=== PATIENT | male | born 1960 | race Caucasian/White ===

== ENCOUNTER 2017-01-20 08:10 | Emergency (ER) | payer OTHER ==
[~2017-01-20] VITALS: Ht 180.3 cm; Wt 127.3 kg
[2017-01-20] MEDS ORDERED: ZOCOR20 MG PO (08:44)
[2017-01-20] MEDS ORDERED: LAMICTAL100 MG PO (08:44)
[2017-01-20] MEDS ORDERED: CLEOCIN300 MG PO (08:44)
[2017-01-20] MEDS ORDERED: HYTRIN5 MG PO (08:45)
[2017-01-20] MEDS ORDERED: DEPAKOTE250 MG PO (08:45)
[2017-01-20] MEDS ORDERED: INDERAL40 MG PO (08:46)
[2017-01-20] MEDS ORDERED: DILANTIN100 MG PO (08:47)
[2017-01-20 09:11] LABS: HEMATOCRIT 33.7 % (38.0-50.0); MCH 28.5 PG (29.0-34.0); MCHC 33.2 G/DL (30.0-36.0); MCV 85.8 FL (86-99); PLATELET COUNT 245 K/uL (156-360); RBC DIS.WIDTH-CV 12.8 % (11.8-14.6); RBC DIS.WIDTH-SD 39.8 % (39-53); RED BLOOD COUNT 3.93 M/uL (4.00-5.50); WHITE BLOOD COUNT 7.3 K/uL (4.1-10.2)
[2017-01-20 09:22] LABS: CHLORIDE 103 mEq/L (99-109); POTASSIUM 4.3 mEq/L (3.7-5.4); SODIUM 137 mEq/L (136-147)
[2017-01-20 09:24] LABS: GLUCOSE 96 mg/dL (70-99)
[2017-01-20 09:25] LABS: ANION GAP 8 MEQ/L (2-14)
[2017-01-20 09:26] LABS: TOTAL BILIRUBIN 0.3 mg/dL (0.0-1.0)
[2017-01-20 09:27] LABS: ALKALINE PHOSPHATASE 59 IU/L (3-129)
[2017-01-20 09:28] LABS: GFR ESTIMATE (CALCULATED) > 59 mL/min/
[2017-01-20 09:29] LABS: UREA NITROGEN (BUN) 15 mg/dL (9-23)
[2017-01-20 10:03] LABS: SAMPLE HEMOLYSIS CHECK 0; SAMPLE ICTERIC CHECK 0; SAMPLE LIPEMIA CHECK 0
[2017-01-20 11:17] LABS: ADD MIUA? NO; BILIRUBIN NEGATIVE; BLOOD NEGATIVE; COLOR YELLOW ((YELLOW)); GLUCOSE (STRIP) NEGATIVE; KETONES 20; LEUKOCYTES NEGATIVE; NITRITE NEGATIVE; PROTEIN (STRIP) 30; SPECIFIC GRAVITY 1.019 (1.000-1.030); UCUL ADDED? NO; UROBILINOGEN 0.2 MG/DL (0.2-1.0)
[2017-01-20 12:13] VITALS: BP 106/64
== END 2017-01-20 12:40 ==
LOC: EME → EDBD 08:10 → EME 12:40
PROVIDERS: Emergency Medicine
DX: G40.909 Epilepsy, unspecified, not intractable, without status epilepticus (principal); I87.2 Venous insufficiency (chronic) (peripheral); L89.899 Pressure ulcer of other site, unspecified stage; I10 Essential (primary) hypertension; E78.5 Hyperlipidemia, unspecified
CPT/HCPCS: 80053; 80164; 80185; 81003; 85027; 99281; 99285; J1165; J7030; J7050

== ENCOUNTER 2017-01-23 10:48 | Emergency (ER) | payer OTHER ==
[~2017-01-23] VITALS: Ht 180.3 cm; Wt 129.0 kg
[~2017-01-23 10:48] MED LIST: CLEOCIN300 MG PO; DEPAKOTE250 MG PO; DILANTIN100 MG PO; HYTRIN5 MG PO; INDERAL40 MG PO; LAMICTAL100 MG PO; ZOCOR20 MG PO
[2017-01-23] MEDS ORDERED: DOXYCYCLINE HY100 MG PO (12:40)
[2017-01-23 13:05] LABS: HEMATOCRIT 33.5 % (38.0-50.0); MCH 28.2 PG (29.0-34.0); MCHC 32.2 G/DL (30.0-36.0); MCV 87.5 FL (86-99); MEAN PLAT.VOLUME 9.3 uM^3 (9.0-12.4); PLATELET COUNT 227 K/uL (156-360); RBC DIS.WIDTH-CV 13.2 % (11.8-14.6); RBC DIS.WIDTH-SD 42.3 % (39-53); RED BLOOD COUNT 3.83 M/uL (4.00-5.50); WHITE BLOOD COUNT 6.2 K/uL (4.1-10.2)
[2017-01-23 13:23] LABS: CHLORIDE 104 mEq/L (99-109); POTASSIUM 4.2 mEq/L (3.7-5.4); SODIUM 137 mEq/L (136-147)
[2017-01-23 13:25] LABS: GLUCOSE 83 mg/dL (70-99)
[2017-01-23 13:26] LABS: ANION GAP 9 MEQ/L (2-14)
[2017-01-23 13:27] LABS: TOTAL BILIRUBIN 0.3 mg/dL (0.0-1.0)
[2017-01-23 13:28] LABS: ALKALINE PHOSPHATASE 55 IU/L (3-129)
[2017-01-23 13:29] LABS: GFR ESTIMATE (CALCULATED) > 59 mL/min/
[2017-01-23 13:30] LABS: UREA NITROGEN (BUN) 14 mg/dL (9-23)
[2017-01-23 13:48] VITALS: BP 114/79
== END 2017-01-23 13:52 ==
LOC: EME 10:48
PROVIDERS: Emergency Medicine
DX: I83.029 Varicose veins of left lower extremity with ulcer of unspecified site (principal); G40.909 Epilepsy, unspecified, not intractable, without status epilepticus; R60.0 Localized edema; I73.9 Peripheral vascular disease, unspecified; K21.9 Gastro-esophageal reflux disease without esophagitis
CPT/HCPCS: 80053; 85027; 99281; 99284

== ENCOUNTER 2017-02-02 16:06 | Emergency (ER) | payer OTHER ==
[~2017-02-02] VITALS: Ht 180.3 cm; Wt 125.7 kg
[~2017-02-02 16:06] MED LIST changes: +DOXYCYCLINE HY100 MG PO
[2017-02-02 17:59] LABS: BASOPHIL COUNT 0.1 K/uL (0-0.1); EOSINOPHIL (%) 1.7 % (0-5); EOSINOPHIL COUNT 0.1 K/uL (0-0.3); HEMATOCRIT 36.7 % (38.0-50.0); IMMATURE GRANULOCYTE (%) 3.8 % (0.0-0.7); IMMATURE GRANULOCYTE COUNT 0.2 K/uL; LYMPHOCYTE COUNT 1.5 K/uL (1.0-2.8); MCHC 32.7 G/DL (30.0-36.0); MCV 85.7 FL (86-99); MEAN PLAT.VOLUME 8.8 uM^3 (9.0-12.4); MONOCYTE (%) 18.5 % (3-12); MONOCYTE COUNT 1.1 K/uL (0-0.8); NEUTROPHIL (%) 49.3 % (45-76); PLATELET COUNT 226 K/uL (156-360); RBC DIS.WIDTH-CV 13.6 % (11.8-14.6); RBC DIS.WIDTH-SD 42.3 % (39-53); RED BLOOD COUNT 4.28 M/uL (4.00-5.50)
[2017-02-02 18:10] LABS: CHLORIDE 110 mEq/L (99-109); POTASSIUM 3.7 mEq/L (3.7-5.4); SODIUM 141 mEq/L (136-147)
[2017-02-02 18:12] LABS: GLUCOSE 93 mg/dL (70-99)
[2017-02-02 18:13] LABS: ANION GAP 10 MEQ/L (2-14)
[2017-02-02 18:14] LABS: TOTAL BILIRUBIN 0.3 mg/dL (0.0-1.0)
[2017-02-02 18:16] LABS: ALKALINE PHOSPHATASE 62 IU/L (3-129); GFR ESTIMATE (CALCULATED) > 59 mL/min/
[2017-02-02 18:17] LABS: UREA NITROGEN (BUN) 24 mg/dL (9-23)
[2017-02-03 01:13] VITALS: BP 119/69
== END 2017-02-03 01:16 | disposition short-term general hospital (02) ==
LOC: EME 16:06
PROVIDERS: Emergency Medicine
DX: L03.116 Cellulitis of left lower limb (principal); L03.115 Cellulitis of right lower limb; I96 Gangrene, not elsewhere classified; K21.9 Gastro-esophageal reflux disease without esophagitis; I73.9 Peripheral vascular disease, unspecified; I10 Essential (primary) hypertension; E78.5 Hyperlipidemia, unspecified
CPT/HCPCS: 73590; 73701; 80053; 83605; 85025; 87040; 87070; 87075; 87077; 87186; 87205; 99281; 99285; J2270; J2543; J3010; J3370; J7030

== ENCOUNTER 2017-02-14 21:20 | Emergency (ER) | payer OTHER ==
[~2017-02-14] VITALS: Ht 180.3 cm; Wt 125.0 kg
[2017-02-14 22:50] LABS: EOSINOPHIL (%) 0.7 % (0-5); EOSINOPHIL COUNT 0.1 K/uL (0-0.3); HEMATOCRIT 29.9 % (38.0-50.0); IMMATURE GRANULOCYTE (%) 0.9 % (0.0-0.7); IMMATURE GRANULOCYTE COUNT 0.1 K/uL; INSTRUMENT ABS NEUTROPHIL CT 7.3 K/uL; LYMPHOCYTE COUNT 0.6 K/uL (1.0-2.8); MCH 28.3 PG (29.0-34.0); MCHC 32.8 G/DL (30.0-36.0); MCV 86.4 FL (86-99); MEAN PLAT.VOLUME 9.2 uM^3 (9.0-12.4); MONOCYTE (%) 7.4 % (3-12); MONOCYTE COUNT 0.6 K/uL (0-0.8); NEUTROPHIL (%) 83.9 % (45-76); NEUTROPHIL COUNT 7.3 K/uL (1.8-6.4); PLATELET COUNT 268 K/uL (156-360); RBC DIS.WIDTH-CV 15.1 % (11.8-14.6); RED BLOOD COUNT 3.46 M/uL (4.00-5.50); WHITE BLOOD COUNT 8.7 K/uL (4.1-10.2)
[2017-02-14 22:55] LABS: CHLORIDE 105 mEq/L (99-109); POTASSIUM 3.9 mEq/L (3.7-5.4); SODIUM 136 mEq/L (136-147)
[2017-02-14 22:57] LABS: GLUCOSE 78 mg/dL (70-99)
[2017-02-14 22:59] LABS: ANION GAP 16 MEQ/L (2-14); TOTAL BILIRUBIN 0.2 mg/dL (0.0-1.0)
[2017-02-14 23:01] LABS: ALKALINE PHOSPHATASE 65 IU/L (3-129); GFR ESTIMATE (CALCULATED) 20 mL/min/
[2017-02-14 23:02] LABS: UREA NITROGEN (BUN) 40 mg/dL (9-23)
[2017-02-15 01:19] VITALS: BP 102/84
== END 2017-02-15 01:23 | disposition short-term general hospital (02) ==
LOC: EME → EDBD 21:20 → EME 21:20
PROVIDERS: Emergency Medicine
DX: L03.116 Cellulitis of left lower limb (principal); L03.115 Cellulitis of right lower limb; N17.9 Acute kidney failure, unspecified; K21.9 Gastro-esophageal reflux disease without esophagitis; I73.9 Peripheral vascular disease, unspecified; I10 Essential (primary) hypertension
CPT/HCPCS: 73590; 80053; 83605; 85025; 87040; 99281; 99285; J2405; J2543; J3370

== ENCOUNTER 2017-09-25 10:53 | Emergency (ER) | payer OTHER ==
[~2017-09-25] VITALS: Ht 180.3 cm; Wt 108.1 kg
[2017-09-25 12:12] LABS: HEMATOCRIT 36.9 % (38.0-50.0); HEMOGLOBIN 12.8 G/DL (12.5-16.6); MCH 29.6 PG (29.0-34.0); MCHC 34.7 G/DL (30.0-36.0); MCV 85.2 FL (86-99); PLATELET COUNT 219 K/uL (156-360); RBC DIS.WIDTH-SD 40.4 % (39-53); RED BLOOD COUNT 4.33 M/uL (4.00-5.50); WHITE BLOOD COUNT 3.9 K/uL (4.1-10.2)
[2017-09-25 12:22] LABS: CHLORIDE 106 mEq/L (99-109); POTASSIUM 4.1 mEq/L (3.7-5.4); SODIUM 142 mEq/L (136-147)
[2017-09-25 12:24] LABS: GLUCOSE 96 mg/dL (70-99)
[2017-09-25 12:28] LABS: CREATININE 0.7 mg/dL (0.6-1.3); GFR ESTIMATE (CALCULATED) > 59 mL/min/ (58.99-99999)
[2017-09-25 12:29] LABS: UREA NITROGEN (BUN) 12 mg/dL (9-23)
[2017-09-25] MEDS ORDERED: CLEOCIN300 MG PO (13:33)
[2017-09-25 14:09] VITALS: BP 139/95
== END 2017-09-25 14:24 ==
LOC: EME 10:53
PROVIDERS: Emergency Medicine
DX: L03.116 Cellulitis of left lower limb (principal); I10 Essential (primary) hypertension; K21.9 Gastro-esophageal reflux disease without esophagitis; Z86.79 Personal history of other diseases of the circulatory system; Z87.898 Personal history of other specified conditions; Z88.2 Allergy status to sulfonamides; Z88.8 Allergy status to other drugs, medicaments and biological substances
CPT/HCPCS: 73590; 80048; 85027; 99281; 99285